=== PATIENT | female | born 1945 | race Caucasian/White ===

== ENCOUNTER 2017-08-20 14:53 | Observation (INO) ==
[2017-08-20] MEDS ORDERED: 0.9 % Sodium Chloride 1,000 ML IVC ONE ×2 (15:00→17:12)
[2017-08-20] MEDS ORDERED: Ondansetron 4 MG/2 ML VIAL IVP ONE (15:00)
--- NOTE | 2017-08-20 15:06 | Emergency Department Note ---
Disposition Clinical Impression: Nausea vomiting and diarrhea, Dehydration, Elevated troponin I level Syncope Qualifiers: Syncope type: unspecified Qualified Code(s): R55 - Syncope and collapse Disposition: Admitted As Inpatient Condition: Fair Time of Disposition: 17:38 Syncope HPI - General Stated Complaint: syncope Time Seen by Provider: 08/20/17 14:58 Source: EMS Mode of arrival: EMS Limitations: no limitations Nursing Notes Reviewed: Yes Vital Signs Reviewed: Yes - History of Present Illness HPI Narrative: Patient is a 72-year-old female who presents to [facility] ED with a chief complaint of syncope today. Patient has had 3 week history of persistent nausea with vomiting as well as diarrhea. States she also has abdominal cramping with this. Patient states today, she was standing up and then felt lightheaded. Her caught her as she passed out. Denies any chest pain, difficulty breathing. No recent fevers or chills. No difficulty with urination. No blood in the stool or vomit. 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) Prodromal Symptoms: lightheaded Witnessed: yes - by bystander Context: standing up Injuries Sustained Associated with Event: none Current Symptoms: nausea, abdominal pain Treatments prior to arrival: IV fluids Associated trauma secondary to event: No - Related Data Home Medications Medication Instructions Recorded Confirmed Albuterol Sulfate [Proair Hfa] 2 puff IH QID PRN 08/20/17 08/20/17 Amlodipine Besylate 2.5 mg PO DAILY 08/20/17 08/20/17 Ammonium Lactate [Lac-Hydrin Five] 1 appl TP BID PRN 08/20/17 08/20/17 Aspirin Enteric Coated [Aspirin EC] 81 mg PO DAILY 08/20/17 08/20/17 Beclomethasone Diprop 80mcg [Qvar 1 puff IH BID 08/20/17 08/20/17 80 mcg] Calcium Carbonate [Calcium] 600 mg PO DAILY 08/20/17 08/20/17 Carbidopa/Levodopa 25/100 [Sinemet 2 each PO TID 08/20/17 08/20/17 25/100] Cranberry 400 mg PO DAILY 08/20/17 08/20/17 HYDROcodone/Acet 5/325 mg [[place] 0.5 - 1 tab PO Q6H PRN 08/20/17 08/20/17 5-325 mg] Loratadine [Claritin] 10 mg PO DAILY 08/20/17 08/20/17 Losartan Potassium [Cozaar] 100 mg PO DAILY 08/20/17 08/20/17 Mometasone Furoate [Nasonex] 17 gm NS DAILY PRN 08/20/17 08/20/17 Montelukast [Singulair] 10 mg PO DAILY 08/20/17 08/20/17 Onabotulinumtoxina [Botox] 100 unit IJ [id number] 08/20/17 08/20/17 Pantoprazole Sodium [Protonix] 20 mg PO DAILY 08/20/17 08/20/17 Polyethylene Glycol 3350 [MiraLAX] 17 gm PO DAILY PRN 08/20/17 08/20/17 Sertraline [Zoloft] 150 mg PO DAILY 08/20/17 08/20/17 Simvastatin [Zocor] 20 mg PO HS 08/20/17 08/20/17 Ubidecarenone [Coenzyme Q-10] 30 mg PO DAILY 08/20/17 08/20/17 clonazePAM [Klonopin] 1 mg PO BID 08/20/17 08/20/17 Allergies Allergy/AdvReac Type Severity Reaction Status Date / Time caffeine Allergy Rash Verified 12/15/16 11:30 codeine Allergy Rash Verified 12/15/16 11:30 iodine Allergy Rash Verified 12/15/16 11:30 Oxycodone Allergy Nausea Verified 12/15/16 11:30 Tetracycline Allergy Vomiting Verified 12/15/16 11:30 All systems ED: reviewed and negative except as stated. Past Medical History - Past Medical History Attestation: Yes The following information was validated with the patient. Source: patient Medical history: Reports: arthritis, GERD, hyperlipidemia, hypertension, TIA - Social History Smoking Status: Never smoker Smokeless Tobacco Status: No Alcohol use: Reports: none Drug use: Reports: none Physical Exam - General Limitations: no limitations General appearance: alert, in no apparent distress - Head Head exam: atraumatic, normocephalic, normal inspection - Eye Eye exam: Present: normal appearance, PERRL, EOMI - ENT ENT exam: normal exam, mucous membranes dry - Neck Neck exam: Present: normal inspection, full ROM, trachea midline - Chest Chest inspection: Present: normal inspection, symmetric chest wall rise - Respiratory Respiratory exam: Present: normal lung sounds bilaterally - Cardiovascular Cardiovascular exam: Present: normal rhythm, tachycardia - Abdominal Exam Abdominal exam: Present: soft, tenderness, normal bowel sounds. Absent: distention, guarding, rebound, rigidity Abdominal tenderness: Present: diffuse, mild - Extremities Exam Extremities exam: Present: normal inspection, full ROM. Absent: tenderness, pedal edema - Back Exam Back exam: Present: normal inspection, full ROM. Absent: tenderness - Neurological Exam Neurological exam: Present: alert, oriented X3 - Psychiatric Psychiatric exam: Present: normal affect, normal mood - Skin Skin exam: Present: warm, dry, intact, normal color Course Course Narrative: Patient seen and examined. Syncopal episode today. Persistent nausea with vomiting and diarrhea. Patient seems quite dehydrated she is tachycardic as well. We will give a liter fluid bolus, Zofran for nausea. We will check basic labs and a CT abdomen and pelvis to assess for any acute abnormalities. - Reevaluation(s) Reevaluation #1: CT scan shows a left sided mass that is adjacent to the left adrenal gland. Possible adrenal gland mass versus lymph node. I discussed results with the patient. She knows that she needs to follow up with this on an outpatient basis. No intra-abdominal finding that seems to address her symptoms. Elevated troponin of 0.04. Likely secondary to demand ischemia. We will give her an aspirin. Second liter fluid was ordered. We will bring her in for further fluids and management of her symptoms. Discussed with hospitalist Dr. Panchal who has accepted patient for admission. Time: 17:37 Vital Signs Temperature 97.9 F 08/20/17 14:57 Pulse Rate 92 08/20/17 14:57 Respiratory Rate 18 08/20/17 14:57 Blood Pressure 133/105 08/20/17 14:57 O2 Sat by Pulse Oximetry 97 08/20/17 14:57 Temperature 97.9 F 08/20/17 14:57 Pulse Rate 92 08/20/17 14:57 Respiratory Rate 18 08/20/17 14:57 Blood Pressure 133/105 08/20/17 14:57 O2 Sat by Pulse Oximetry 97 08/20/17 14:57 Oxygen Delivery Oxygen Delivery Room Air Syncope - Medical Records Medical records reviewed: Yes I reviewed the patient's medical records. - Lab Data Lab results reviewed: Yes I reviewed the patient's lab results. Result diagrams: 08/20/17 15:58 08/20/17 15:58 Lab Results 08/20/17 08/20/17 08/20/17 Range/Units 15:01 15:58 15:58 WBC 11.6 H (4.3-11.1) K/mcL RBC 5.23 H (3.82-4.97) M/mcL Hgb 15.7 H (11.5-15.4) g/dL Hct 46.9 H (35.3-44.9) % MCV 89.7 (83.0-100.0) fL MCH 30.0 (28.0-33.3) pg MCHC 33.5 (31.6-35.5) g/dL RDW 13.1 (11.5-14.5) % Plt Count 361 (140-400) K/mcL MPV 10.4 (9.4-12.4) fL Immature Gran % 0.5 (0-4) % Seg Neutrophils % 78.4 % Lymphocytes % 11.2 % Monocytes % 8.4 % Eosinophils % 0.5 % Basophils % 1.0 % Neutrophils # 9.1 H (1.6-8.9) K/mcL Lymphocytes # 1.3 (0.6-4.6) K/mcL Monocytes # 1.0 (0.0-1.3) K/mcL Eosinophils # 0.1 (0.0-0.6) K/mcL Basophils # 0.1 (0.0-0.2) K/mcL Sodium 141 (136-145) mEq/L Potassium 3.1 L (3.5-5.1) mEq/L Chloride 99 (98-107) mEq/L Carbon Dioxide 28 (23-29) mEq/L BUN 16 (8-23) mg/dL Creatinine 1.14 (0.60-1.20) mg/dL Est GFR ( Amer) 57 L (> 60) Est GFR (Non-Af Amer) 47 L (> 60) BUN/Creatinine Ratio 14 (6-26) Glucose 141 H (70-105) mg/dL POC Glucose 122 H (58-89) Calculated Osmolality 296 (280-300) Lactic Acid (0.5-2.2) mmol/L Calcium 10.3 (8.6-10.3) mg/dL Total Bilirubin 1.0 (0.3-1.0) mg/dL Direct Bilirubin 0.2 (0.0-0.2) mg/dL Indirect Bilirubin 0.8 (0.0-1.2) mg/dL AST 28 (13-39) Units/L ALT 6 L (7-52) Units/L Alkaline Phosphatase 97 (34-104) Units/L Troponin I 0.04 H* (< 0.04) ng/mL Serum Total Protein 7.4 (6.4-8.9) g/dL Albumin 4.4 (3.5-5.7) g/dL Globulin 3.0 (2.4-3.5) g/dL Albumin/Globulin Ratio 1.5 (1.1-2.2) Lipase 9 L (11-82) Units/L 03//18 Range/Units 15:58 WBC (4.3-11.1) K/mcL RBC (3.82-4.97) M/mcL Hgb (11.5-15.4) g/dL Hct (35.3-44.9) % MCV (83.0-100.0) fL MCH (28.0-33.3) pg MCHC (31.6-35.5) g/dL RDW (11.5-14.5) % Plt Count (140-400) K/mcL MPV (9.4-12.4) fL Immature Gran % (0-4) % Seg Neutrophils % % Lymphocytes % % Monocytes % % Eosinophils % % Basophils % % Neutrophils # (1.6-8.9) K/mcL Lymphocytes # (0.6-4.6) K/mcL Monocytes # (0.0-1.3) K/mcL Eosinophils # (0.0-0.6) K/mcL Basophils # (0.0-0.2) K/mcL Sodium (136-145) mEq/L Potassium (3.5-5.1) mEq/L Chloride (98-107) mEq/L Carbon Dioxide (23-29) mEq/L BUN (8-23) mg/dL Creatinine (0.60-1.20) mg/dL Est GFR ( Amer) (> 60) Est GFR (Non-Af Amer) (> 60) BUN/Creatinine Ratio (6-26) Glucose (70-105) mg/dL POC Glucose (58-89) Calculated Osmolality (280-300) Lactic Acid 1.3 (0.5-2.2) mmol/L Calcium (8.6-10.3) mg/dL Total Bilirubin (0.3-1.0) mg/dL Direct Bilirubin (0.0-0.2) mg/dL Indirect Bilirubin (0.0-1.2) mg/dL AST (13-39) Units/L ALT (7-52) Units/L Alkaline Phosphatase (34-104) Units/L Troponin I (< 0.04) ng/mL Serum Total Protein (6.4-8.9) g/dL Albumin (3.5-5.7) g/dL Globulin (2.4-3.5) g/dL Albumin/Globulin Ratio (1.1-2.2) Lipase (11-82) Units/L - Radiology Data Radiology results reviewed: Yes I reviewed the patient's radiology results. Abdomen/Pelvis CT 08/20/17 15:00 IMPRESSION: 1. Indeterminate soft tissue mass adjacent to the left adrenal gland may reflect a lymph node or may reflect an adrenal mass. Additional evaluation with contrast-enhanced MRI abdomen attention adrenal glands may be useful for characterization of enhancement pattern. 2. Mild calcific atherosclerosis aorta without aneurysm. 3. Hepatic steatosis. 4. Cholecystectomy. D/ / Ludwin Rodriguez / Ludwin Rodriguez Interpreting Provider: Ludwin Rodriguez - EKG Data EKG attestation: Yes I reviewed and interpreted this EKG. EKG results narrative: EKG done at 1502 shows normal sinus rhythm with a rate of [address] elevation or depression. Inverted T waves in lead V1. Left axis deviation. Poor R-wave progression. No changes from prior EKG done Jul 28 2014. Attestation Statement - Attestation Attestation: I, Felipe Pa DO, examined this patient [id number] and my medical decision-making was reviewed with Angle Corbett DO Resident Physician. I agree with the documented findings, disposition and treatment plan as described except to the extent set forth below. Please see my progress notes for details. 72-year-old female presents to the emergency room for evaluation of syncopal event. Vital signs are stable presentation. Patient has had syncopal events in the past. She has Parkinson's disease. Over the last 3-4 weeks she has had poorly controlled nausea vomiting and diarrhea. She has not had any other illness. She denies any chest pain shortness of breath headache vision changes fevers or chills. She denies any trauma or injury. She denies any medication changes. Patient has not traveled outside the country she has no other sick contacts. Just prior to coming in, the was with the patient in the bathroom trying to get her shower when she passed out completely. He caught her before she hit the ground. Imaging modalities would be completed secondary to the full syncopal event. Cardiac evaluation with ECG troponin labs including CBC chemistry urinalysis will be completed. CT imaging of the head does not appear to be pertinent at this time considering she did not fall or hit her head and she has had this happen several times in the past. Chest x- ray and CT imaging of the abdomen will be resulted. Definitive management will be established as workup is completed. If need be, we will discuss this with the patient's neurologist up in [place]. Clinically her symptoms appear to be syncope secondary to orthostasis and hypovolemia. Patient will be provided. Hydration and then disposition will be determined. No critical care was applied to the patient's treatment course. See detailed documentation of the physical exam, medical intervention, medical decision-making and disposition in the resident physician's note.. 1745 Patient found have slightly elevated troponin. Hemoglobin appears to be stable. Imaging modalities are unremarkable except for nondescript adrenal cyst. Patient is feeling better at this time still because of the syncopal event the lightheadedness and the persistence of the nausea vomiting and diarrhea causing dehydration patient will be admitted for further hydration medical management and evaluation. Clinical concern for intracranial related pathology at this point concerning symptoms have been present for almost 2-4 weeks. Labs otherwise unremarkable. Disposition will be completed. Troponin appears to be secondary to vascular insufficiency and cardiac straining. Otherwise patient has no EKG changes or other issues at this point. Patient will be admitted for further workup and evaluation.
[2017-08-20 16:19] LABS: Basophils # 0.1 K/mcL (0.0-0.2); Eosinophils # 0.1 K/mcL (0.0-0.6); Eosinophils % 0.5 %; Hematocrit 46.9 % (35.3-44.9); Hemoglobin 15.7 g/dL (11.5-15.4); Immature Granulocytes % 0.5 % (0-4); Lymphocytes # 1.3 K/mcL (0.6-4.6); Lymphocytes % 11.2 %; Mean Corpuscular HGB Conc 33.5 g/dL (31.6-35.5); Mean Corpuscular Volume 89.7 fL (83.0-100.0); Mean Platelet Volume 10.4 fL (9.4-12.4); Monocytes % 8.4 %; Neutrophils # 9.1 K/mcL (1.6-8.9); Platelet Count 361 K/mcL (140-400); Red Blood Count 5.23 M/mcL (3.82-4.97); Red Cell Distribution Width 13.1 % (11.5-14.5); Segmented Neutrophils % 78.4 %
[2017-08-20 16:38] LABS: Albumin 4.4 g/dL (3.5-5.7); Albumin/Globulin Ratio 1.5 (1.1-2.2); Bilirubin,Direct 0.2 mg/dL (0.0-0.2); Bilirubin,Indirect 0.8 mg/dL (0.0-1.2); Calcium 10.3 mg/dL (8.6-10.3); Potassium 3.1 mEq/L (3.5-5.1); Total Protein 7.4 g/dL (6.4-8.9)
[2017-08-20 16:45] LABS: Troponin I 0.04 ng/mL (< 0.04)
[2017-08-20] MEDS ORDERED: Aspirin 81 MG TAB.CHEW PO STA (16:47)
--- NOTE | 2017-08-20 18:07 | Internal Med History&Physical ---
Date of Encounter: 08/20/17 Time of Encounter: 18:03 Assessment and Plan (1) Adrenal mass Current visit: Yes Status: Acute Incidental finding of soft tissue mass adjacent adrenal gland suggestive of possible lymph node versus adrenal mass will obtain MRI as suggested (2) Hypokalemia Current visit: Yes Status: Acute 2 to nausea vomiting and diarrhea we will replace and check magnesium as well (3) GERD (gastroesophageal reflux disease) Current visit: Yes Status: Chronic Chronic resume home medication Qualifiers: Esophagitis presence: without esophagitis Qualified Code(s): K21.9 - Gastro -esophageal reflux disease without esophagitis (4) Dehydration Current visit: Yes Status: Acute (5) Elevated troponin I level Current visit: Yes Status: Acute Mildly elevated troponin with transient troponin check a 2-D echo (6) Nausea vomiting and diarrhea Current visit: Yes Status: Acute Persistent nausea vomiting and diarrhea suggestive of gastroenteritis. This is protracted course about 3 weeks we will consult GI for additional evaluation (7) Syncope Current visit: Yes Status: Acute Patient has has persistent nausea vomiting diarrhea and then today had syncope while standing up preceded by lightheadedness suggestive of vasovagal syncope , very likely orthostatic hypotension versus vasodepressive syncope will continue IV hydration and monitor on telemetry 2-D echo to look at LV function Previous echo done 16 showed normal LV function Qualifiers: Syncope type: unspecified Qualified Code(s): R55 - Syncope and collapse (8) Parkinson disease Current visit: Yes Status: Acute Chronic patient follows up with neurology in [facility] - H&P: HPI Chief complaint: nausea, vomitting and diarrhea Admitted From: Emergency Dept Plans for Post Hospital Care: Home History of present illness: Ms. Collins is a 72 year old female Patient with history of Parkinson, hypertension, TIA, GERD, obesity, and arthritis. Patient presented emergency room following a syncope episode today she got up felt lightheaded and dizzy and passed out but the caught her before she fell to the ground and brought to the emergency room. Patient had had persistent nausea vomiting and diarrhea for about 3 weeks when she goes to have a bowel movement she have abdominal cramping and this persistent diarrhea No blood in the stool no fever or chills and emergency room evaluation show patient is very dehydrated has low potassium of 3.1 CT of the abdomen shows incidental finding of soft tissue mass adjacent to the adrenal gland suggest further evaluation with MRI. Past Med Surg Social Fam HX - Past Medical History Medical history: arthritis, GERD, hyperlipidemia, hypertension, TIA - Social History Smoking Status: Never smoker Smokeless Tobacco Status: No Alcohol use: none Drug use: none Internal Medicine - H&P: Meds Albuterol Sulfate [Proair Hfa] 2 puff IH QID PRN 08/20/17 [History] Amlodipine Besylate 2.5 mg PO DAILY 08/20/17 [History] Ammonium Lactate [Lac-Hydrin Five] 1 appl TP BID PRN 08/20/17 [History] Aspirin Enteric Coated [Aspirin EC] 81 mg PO DAILY 08/20/17 [History] Beclomethasone Diprop 80mcg [Qvar 80 mcg] 1 puff IH BID 08/20/17 [History] Calcium Carbonate [Calcium] 600 mg PO DAILY 08/20/17 [History] Carbidopa/Levodopa 25/100 [Sinemet 25/100] 2 each PO TID 08/20/17 [History] Cranberry 400 mg PO DAILY 08/20/17 [History] HYDROcodone/Acet 5/325 mg [[place] 5-325 mg] 0.5 - 1 tab PO Q6H PRN 08/20/17 [ History] Loratadine [Claritin] 10 mg PO DAILY 08/20/17 [History] Losartan Potassium [Cozaar] 100 mg PO DAILY 08/20/17 [History] Mometasone Furoate [Nasonex] 17 gm NS DAILY PRN 08/20/17 [History] Montelukast [Singulair] 10 mg PO DAILY 08/20/17 [History] Onabotulinumtoxina [Botox] 100 unit IJ [id number] 08/20/17 [History] Pantoprazole Sodium [Protonix] 20 mg PO DAILY 08/20/17 [History] Polyethylene Glycol 3350 [MiraLAX] 17 gm PO DAILY PRN 08/20/17 [History] Sertraline [Zoloft] 150 mg PO DAILY 08/20/17 [History] Simvastatin [Zocor] 20 mg PO HS 08/20/17 [History] Ubidecarenone [Coenzyme Q-10] 30 mg PO DAILY 08/20/17 [History] clonazePAM [Klonopin] 1 mg PO BID 08/20/17 [History] 3 Allergy/AdvReac Type Severity Reaction Status Date / Time caffeine Allergy Rash Verified 12/15/16 11:30 codeine Allergy Rash Verified 12/15/16 11:30 iodine Allergy Rash Verified 12/15/16 11:30 Oxycodone Allergy Nausea Verified 12/15/16 11:30 Tetracycline Allergy Vomiting Verified 12/15/16 11:30 All Systems PM: A 10-system review of systems was performed and is negative for pertinent findings except as documented above in the HPI. - Constitutional Constitutional: other - EENT Eyes: no change in vision, no discharge, no pain, no photophobia Ears: no ear discharge, no ear pain, no tinnitus Nose, mouth and throat: no dysphagia, no nasal discharge, no neck pain, no sore throat - Cardiovascular Cardiovascular ROS IM: syncope - Respiratory Respiratory: no cough, no dyspnea, no wheezing, no excessive phlegm production - Gastrointestinal Gastrointestinal: no abdominal pain, no diarrhea, no hematemesis, no hematochezia, no melena, no nausea, no vomiting - Genitourinary Genitourinary: no change in urinary stream, no dysuria, no flank pain, no hematuria - Musculoskeletal Musculoskeletal ROS IM: no numbness, no tingling - Integumentary Integumentary IM: no rash, no unusual bruising - Constitutional Vitals: Temp Pulse Resp BP Pulse Ox 97.9 F 92 18 133/105 97 08/20/17 14:57 08/20/17 14:57 08/20/17 14:57 08/20/17 14:57 08/20/17 14:57 - Head Head exam: Present: atraumatic, normocephalic - Eye Eye exam: Present: PERRL, conjuntiva pink, sclera anicteric Pupils: Present: PERRL - Neck Neck exam general surgery: Present: supple, trachea midline. Absent: lymphadenopathy - Respiratory Respiratory exam: Present: CTAB. Absent: accessory muscle use, rales, rhonchi, wheezes - Cardiovascular Cardiovascular exam: Present: RRR, +S1, +S2. Absent: diastolic murmur, gallop, rubs, systolic murmur - GI/Abdominal GI/Abdominal exam: Present: normal bowel sounds, soft, no peritoneal signs. Absent: distended, tenderness - Extremities Exam Extremities exam: Present: warm, radial pulses palpable and symmetrical. Absent : calf tenderness, cyanotic, pedal edema - Neurological Exam Neurological exam: Present: CN II-XII intact, oriented X3, no focal deficits. Absent: pronater drift, facial droop, speech deficit - Skin Skin exam: Present: dry, intact Internal Med - H&P Results - Labs CBC & Chem 7: 08/20/17 15:58 08/20/17 15:58
[2017-08-20] MEDS ORDERED: Ondansetron 4 MG/2 ML VIAL IVP PRN (18:16)
[2017-08-20] MEDS ORDERED: Mag Hydrox/Al Hydrox/Simeth 30 ML UDC PO PRN (18:16)
[2017-08-20] MEDS ORDERED: Naloxone 0.4 MG/ML INJ IVP PRN (18:16)
[2017-08-20] MEDS ORDERED: Ammonium Lactate 30 APPL/225 GM BOTTLE TP PRN (18:19)
[2017-08-20] MEDS ORDERED: Fluticasone Propionate Nasal 50 MCG/SPRAY BOTTLE NS PRN (18:19)
[2017-08-20] MEDS ORDERED: Potassium Chloride 40 MEQ, Lidocaine 1% 2 ML in D5% in Water 500 ML IVPB ONE (18:22)
[2017-08-20] MEDS: Carbidopa/Levodopa 25/100 TABLET PO SCH (20:04)
[2017-08-20] MEDS: clonazePAM 1 MG TABLET PO SCH (20:04)
[2017-08-20] MEDS: 0.9 % Sodium Chloride 1,000 ML IVC SCH (20:05)
[2017-08-20 21:11] LABS: Bilirubin,Urine Negative (Negative); Blood,Urine Negative (Negative); Clarity,Urine Cloudy (Clear); Color,Urine Yellow (Yellow); Glucose,Urine (UA) 250 mg/dL (Normal); Ketones,Urine Trace mg/dL (Negative); Leukocyte Esterase,Urine Small (Negative); Nitrite,Urine Negative (Negative); PH,Urine 7.5 pH Units (5.0-8.0); Protein,Urine 30 mg/dL (Neg-Trace); Specific Gravity,Urine 1.017 (1.010-1.025); Urobilinogen,Urine Normal (Normal)
[2017-08-20 21:14] LABS: Bacteria,Urine None Seen per hpf (None-Few); Hyaline Casts,Urine Moderate per lpf (None-Few); RBC,Urine 0-3 per hpf (0-3); Squamous Epithelial Cell,Urine Many per lpf (None-Few); WBC,Urine 15-30 per hpf (0-3)
[2017-08-20] MEDS: Beclomethasone 80mcg MDI IH SCH (21:36)
[2017-08-21 05:25] LABS: Alanine Aminotransferase 3 Units/L (7-52); Albumin/Globulin Ratio 1.5 (1.1-2.2); Alkaline Phosphatase 80 Units/L (34-104); Aspartate Amino Transferase 22 Units/L (13-39); BUN/Creatinine Ratio 14 (6-26); Bilirubin,Total 0.9 mg/dL (0.3-1.0); Blood Urea Nitrogen 13 mg/dL (8-23); Calcium 9.6 mg/dL (8.6-10.3); Carbon Dioxide 29 mEq/L (23-29); Chloride 104 mEq/L (98-107); Chol/HDL Ratio 3.8 (0-4.9); Cholesterol 191 mg/dL (< 200); Globulin 2.6 g/dL (2.4-3.5); Glucose 140 mg/dL (70-105); HDL Cholesterol 50 mg/dL (40-59); LDL Cholesterol,Calculated 108 mg/dL (0-99); Magnesium 1.7 mg/dL (1.6-2.6); Osmolality,Calculated 294 (280-300); Potassium 3.2 mEq/L (3.5-5.1); Sodium 141 mEq/L (136-145); Total Protein 6.6 g/dL (6.4-8.9); Triglycerides 163 mg/dL (< 150); eGFR For African Americans > 60 (> 60); eGFR For Non-African Americans 59 (> 60)
--- NOTE | 2017-08-21 07:25 | Electrocardiograph Report ---
[address] [place] [address] Test Date: 2017-08-20 Pat Name: Ella Collins Department: 102 Room: 2N10 Gender: F [employer] Compounder: : 1945 Requested By: Angle Corbett Order Number: [id number] Reading MD: Hugo Bach MD Measurements Intervals [place] Rate: 71 P: 25 GA: 177 QRS: -27 QRSD: 80 T: 36 QT: 369 QTc: 392 Interpretive Statements SINUS RHYTHM LEFT ATRIAL ENLARGEMENT BORDERLINE LEFT AXIS DEVIATION LEFT VENTRICULAR HYPERTROPHY Electronically Signed On 08-21-2017 7:23:53 EDT by Hugo Bach MD
[2017-08-21] MEDS: Carbidopa/Levodopa 25/100 TABLET PO SCH ×3 (07:33→20:22)
[2017-08-21] MEDS: Aspirin Enteric Coated 81 MG Tablet PO SCH (07:34)
[2017-08-21] MEDS ORDERED: Potassium Chloride Elixir 20 MEQ/15 ML UDC PO ONE (07:34)
[2017-08-21] MEDS: clonazePAM 1 MG TABLET PO SCH ×2 (07:34→20:22)
[2017-08-21] MEDS: Loratadine 10 MG TABLET PO SCH (07:34)
[2017-08-21] MEDS: Beclomethasone 80mcg MDI IH SCH ×2 (08:01→22:32)
--- NOTE | 2017-08-21 08:46 | Internal Med Progress Note ---
<Nilton Guallpa - Last Filed: 08/21/17 09:10> Date of Encounter: 08/21/17 Time of Encounter: 08:46 - Assessment and plan (1) Adrenal incidentaloma Current Visit: Yes Status: Acute Assessment and plan: 42 mm x 23 mm mass found adjacent to left adrenal gland. Random cortisol 13.1. Patient's blood pressure is within normal limits. Denies palpitations, diaphoresis, headache BP 140s systolic. Presented with hypokalemia: K+ 3.1 plasma aldosterone levels, renin activity MRI pending. (2) Syncope Current Visit: Yes Status: Acute Assessment and plan: Patient had episode of syncope which brought her to the emergency department. This occurred while standing up Reports not eating anything for the past 3 days. Likely secondary to dehydration, vasovagal episode On presentation blood pressure was 133/105 with a heart rate of 92. Echocardiogram pending Qualifiers: Syncope type: unspecified Qualified Code(s): R55 - Syncope and collapse (3) Nausea vomiting and diarrhea Current Visit: Yes Status: Acute Assessment and plan: GI stool panel pending Respiratory infection panel pending Continue IV fluids. Continue ondansetron. (4) Elevated troponin I level Current Visit: Yes Status: Acute Assessment and plan: Patient had elevated troponin of 0.04, 0.04, 0.03 respectively. EKG shows sinus rhythm with a rate of [address] T wave changes. Chest x-ray within normal limits. She denies chest pain. Denies hx of cardiovascular disease hx of HTN and HLD previous echo EF of 65% with mild concentric hypertrophy of the left ventricle, mild dilated right ventricle and mild mitral regurgitation. Echocardiogram pending. Continue aspirin and statin (5) Hypokalemia Current Visit: Yes Status: Acute Assessment and plan: 2nd N/V replacing 40meq PO (6) GERD (gastroesophageal reflux disease) Current Visit: Yes Status: Chronic Assessment and plan: continue omeprazole Qualifiers: Esophagitis presence: without esophagitis Qualified Code(s): K21.9 - Gastro -esophageal reflux disease without esophagitis (7) Parkinson disease Current Visit: Yes Status: Acute Assessment and plan: continue Sinemet. - Subjective Interval history: Patient reports she still having a lot of nausea and dry heaving. She had a bout of vomiting and diarrhea yesterday. Reports her symptoms started 3 weeks ago as mild nausea and became progressively worse to the point for the past 3 days patient has not been able to eat or drink. Patient presented after passing out and was caught by her . She denies sick contacts, eating contaminated food, travel. Denies being started on a new medication. Denies hematemesis and hematochezia, melena. Reported having abdominal cramping yesterday over the lower abdomen which has not resolved. Denies having fevers. 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 Denies having animals at home. - Constitutional Vitals: Temp Pulse Resp BP Pulse Ox 98.5 F 96 17 147/81 92 08/21/17 07:35 08/21/17 07:35 08/21/17 08:02 08/21/17 07:35 08/21/17 08:02 - Other Additional findings: General: Pleasant without distress HEENT: Head atraumatic, normocephalic, EOMI, PERRL, neck nontender to palpation , absent lymphadenopathy, dry mucous membranes Heart: Sinus tachycardia Lungs: Clear to auscultation bilaterally Abdomen: Soft nontender, nondistended positive bowel sounds Skin: warm and dry Extremities: Absent pedal edema, right upper extremity resting tremor Neuro: Alert and oriented 3 Vascular: Pedal and radial pulses 2 out of 4 Internal Medicine: Result - Labs CBC & Chem 7: 08/20/17 15:58 08/21/17 03:49 Labs: BMP 08/21/17 03:49 Sodium 141 Potassium 3.2 L Chloride 104 Carbon Dioxide 29 BUN 13 Creatinine 0.93 Glucose 140 H Calcium 9.6 Cardiac Enzymes 08/20/17 08/21/17 Range/Units 21:51 03:49 Troponin I 0.04 H* 0.03 (< 0.04) ng/mL Liver Function 08/21/17 Range/Units 03:49 Total Bilirubin 0.9 (0.3-1.0) mg/dL AST 22 (13-39) Units/L ALT 3 L (7-52) Units/L Alkaline Phosphatase 80 (34-104) Units/L Albumin 4.0 (3.5-5.7) g/dL Urine 08/20/17 Range/Units 20:00 Urine Color Yellow (Yellow) Urine Clarity Cloudy A (Clear) Urine pH 7.5 (5.0-8.0) pH Units Ur Specific [place] 1.017 (1.010-1.025) Urine Protein 30 H (Neg-Trace) mg/dL Urine Glucose (UA) 250 H (Normal) mg/dL Consult Discharge Plan - Plan Referrals: JEMAL GRANADO [Other] - 08/29/17 3:00 pm (THIS IS A NEW OFFICE FOR DR. GRANADO HE IS NOW LOCATED BESIDE OF [facility]) <Tim Guillen H - Last Filed: 08/21/17 11:19> Date of Encounter: 08/21/17 - Constitutional Vitals: Temp Pulse Resp BP Pulse Ox 98.5 F 96 17 147/81 92 08/21/17 07:35 08/21/17 07:35 08/21/17 08:02 08/21/17 07:35 08/21/17 08:02 Internal Medicine: Result - Labs CBC & Chem 7: 08/20/17 15:58 08/21/17 03:49 Labs: BMP 08/21/17 03:49 Sodium 141 Potassium 3.2 L Chloride 104 Carbon Dioxide 29 BUN 13 Creatinine 0.93 Glucose 140 H Calcium 9.6 Cardiac Enzymes 08/20/17 08/21/17 08/21/17 Range/Units 21:51 03:49 09:25 Troponin I 0.04 H* 0.03 < 0.03 (< 0.04) ng/mL Liver Function 08/21/17 Range/Units 03:49 Total Bilirubin 0.9 (0.3-1.0) mg/dL AST 22 (13-39) Units/L ALT 3 L (7-52) Units/L Alkaline Phosphatase 80 (34-104) Units/L Albumin 4.0 (3.5-5.7) g/dL Urine 08/20/17 Range/Units 20:00 Urine Color Yellow (Yellow) Urine Clarity Cloudy A (Clear) Urine pH 7.5 (5.0-8.0) pH Units Ur Specific [place] 1.017 (1.010-1.025) Urine Protein 30 H (Neg-Trace) mg/dL Urine Glucose (UA) 250 H (Normal) mg/dL - Impressions Impressions Echocardiogram 08/20/17 18:21 Impressions: Blood pressure 200/102 mmHg during time of study. LVEF 65%. Moderate concentric left ventricular hypertrophy with severe basal septal hypertrophy. No LV outflow obstruction. Mild left ventricular diastolic dysfunction. Normal right ventricular structure and function. Mild pulmonic regurgitation. No pulmonary hypertension by TR gradient, 29 mmHg. No evidence of PFO with agitated saline contrast. Left Ventricular Wall Motion: Rest Echo Findings All wall segments showed normal motion. Findings: Study Quality * Technically adequate exam. ECG Findings * Normal sinus rhythm. Left Ventricle * LVEF 65%. * Moderate concentric left ventricular hypertrophy with severe basal septal hypertrophy. * Mild left ventricular diastolic dysfunction. Right Ventricle * Normal right ventricular structure and function. Left Atrium * Mildly dilated left atrium. Right Atrium * Normal right atrial size. Aortic Valve * Trace aortic regurgitation. * Trileaflet aortic valve. * No aortic stenosis. Mitral Valve * No mitral regurgitation. * Normal mitral valve structure. * No mitral stenosis. Tricuspid Valve * Tricuspid valve not well visualized. * Trace tricuspid regurgitation. Pulmonic Valve * Pulmonic valve is not well visualized. * No pulmonic stenosis. * Mild pulmonic regurgitation. Pulmonary Artery * Pulmonary artery not well visualized. Aorta * Normally sized aortic root. Pericardium * There is no pericardial effusion present. Interatrial Septum * No evidence of PFO by color Doppler. * No evidence of PFO with agitated saline contrast. IVC * The IVC is not well evaluated. - Attending Attestation Syncopal episode, unclear etiology, consider possible dehydration Intra-abdominal mass, consider possible carcinoid in the setting of acute diarrhea Check 5HIAA in urine of 24 hours GI consulted Send a GI panel I examined this patient and my medical decision-making was reviewed with the Resident Physician. I agree with the documented findings, disposition and treatment plan as described except to the extent set forth below.
[2017-08-21] MEDS ORDERED: UBIDECARENONE 30 MG PO SCH (09:00)
[2017-08-21] MEDS ORDERED: CRANBERRY 400 MG PO SCH (09:00)
[2017-08-21] MEDS ORDERED: *HR* Promethazine 25 MG/ML VIAL IVP PRN (09:15)
[2017-08-21] MEDS: 0.9 % Sodium Chloride 1,000 ML IVC SCH (09:40)
[2017-08-21 10:39] LABS: Estimated Average Glucose 143 mg/dl; Hemoglobin A1C 6.6 %
[2017-08-21] MEDS: *HR* HYDROcodone/Acet 5/325 mg TABLET PO PRN (11:54)
--- NOTE | 2017-08-21 12:22 | Gastroenterology Consult Note ---
<Shane Xiong - Last Filed: 08/21/17 17:02> Date of Encounter: 08/21/17 Time of Encounter: 14:00 - Time Spent With Patient Total time spent is greater than 50% in coordination of care (as documented) at patient's floor/unit and/or counseling patient: GI History of Present Illness - Data of Consult Requesting Physician: Tim Guillen - Consult Narrative History of present illness: Ms. Collins is a 72 year old female - Constitutional Vitals: Temp Pulse Resp BP Pulse Ox 97.5 F L 84 17 147/81 99 08/21/17 12:00 08/21/17 12:00 08/21/17 12:00 08/21/17 12:00 08/21/17 12:00 Results - Labs CBC & Chem 7: 08/20/17 15:58 08/21/17 03:49 Labs: Last Result Calcium 9.6 mg/dL (8.6-10.3) 08/21/17 03:49 Troponin I < 0.03 ng/mL (< 0.04) 08/21/17 09:25 Triglycerides 163 mg/dL (< 150) H 08/21/17 03:49 Entire Visit Hgb 15.7 g/dL (11.5-15.4) H 08/20/17 15:58 Hct 46.9 % (35.3-44.9) H 08/20/17 15:58 Total Bilirubin 0.9 mg/dL (0.3-1.0) 08/21/17 03:49 AST 22 Units/L (13-39) 08/21/17 03:49 ALT 3 Units/L (7-52) L 08/21/17 03:49 Lipase 9 Units/L (11-82) L 08/20/17 15:58 - Impressions Impressions Echocardiogram 08/20/17 18:21 Impressions: Blood pressure 200/102 mmHg during time of study. LVEF 65%. Moderate concentric left ventricular hypertrophy with severe basal septal hypertrophy. No LV outflow obstruction. Mild left ventricular diastolic dysfunction. Normal right ventricular structure and function. Mild pulmonic regurgitation. No pulmonary hypertension by TR gradient, 29 mmHg. No evidence of PFO with agitated saline contrast. Left Ventricular Wall Motion: Rest Echo Findings All wall segments showed normal motion. Findings: Study Quality * Technically adequate exam. ECG Findings * Normal sinus rhythm. Left Ventricle * LVEF 65%. * Moderate concentric left ventricular hypertrophy with severe basal septal hypertrophy. * Mild left ventricular diastolic dysfunction. Right Ventricle * Normal right ventricular structure and function. Left Atrium * Mildly dilated left atrium. Right Atrium * Normal right atrial size. Aortic Valve * Trace aortic regurgitation. * Trileaflet aortic valve. * No aortic stenosis. Mitral Valve * No mitral regurgitation. * Normal mitral valve structure. * No mitral stenosis. Tricuspid Valve * Tricuspid valve not well visualized. * Trace tricuspid regurgitation. Pulmonic Valve * Pulmonic valve is not well visualized. * No pulmonic stenosis. * Mild pulmonic regurgitation. Pulmonary Artery * Pulmonary artery not well visualized. Aorta * Normally sized aortic root. Pericardium * There is no pericardial effusion present. Interatrial Septum * No evidence of PFO by color Doppler. * No evidence of PFO with agitated saline contrast. IVC * The IVC is not well evaluated. Abdomen MRI 08/21/17 10:16 IMPRESSION: 1. 3.9 cm x 2.1 cm x 4.4 cm lesion in the left suprarenal fossa appears to arise from the anteromedial left adrenal gland and has features suggestive of pheochromocytoma. Recommend biochemical correlation with consideration for surgical consultation. 2. Severe hepatic steatosis and mild hepatomegaly. D/ / Alok Alonso MD / Alok Alonso MD Interpreting Provider: Alok Alonso MD Consult Discharge Plan - Plan Referrals: JEMAL GRANADO [Other] - 08/29/17 3:00 pm (THIS IS A NEW OFFICE FOR DR. GRANADO HE IS NOW LOCATED [facility]ESIDE [facility]) - Attending Attestation I have personally performed a face to face evaluation on this patient. I have reviewed and agree with the care plan. History and Exam by me shows: Patient seen complaining of nausea vomiting and diarrhea for 3 weeks or so. Currently she is being workup for a possible pheochromocytoma. We will wait for stool studies including stool panel and C. difficile and also w/u for pheochromocytoma if unremarkable then will consider EGD colonoscopy <Graciela Mon - Last Filed: 08/21/17 17:12> Date of Encounter: 08/21/17 Time of Encounter: 10:50 - Assessment and plan (1) Nausea vomiting and diarrhea Current Visit: Yes Status: Acute Assessment and plan: 72 year old female who presents with syncope. She admits to 3 week history of nausea, vomiting, diarrhea and weight loss. CT abdomen showed possible adrenal mass. Mri shows possible pheochromocytoma which may explain some of her symptoms. Will order stool workup. Will hold off on EGD/colonoscopy at this time - Time Spent With Patient Total time spent is greater than 50% in coordination of care (as documented) at patient's floor/unit and/or counseling patient: GI History of Present Illness - Data of Consult Patient: new to practice Consult date: 08/21/17 Requesting Physician: Tim Guillen - Consult Narrative Reason for consult: nausea/vomiting/diarrhea History of present illness: Ms. Collins is a 72 year old female Patient with history of Parkinson, hypertension, TIA, GERD, obesity, and arthritis. She presented to the emergency room following a syncope episode today. She states she got up felt lightheaded and dizzy and passed out but her caught her before she fell to the ground and brought to the emergency room. Patient also reports persistent nausea vomiting and diarrhea for about 3 weeks. She states diarrhea is yellow, denies bloody or tarry stools. She states 1-2 BMs a day. She has abdominal cramping. She states nausea and vomiting is not related to any specific foods. She denies hematemesis. She states she has history of GERD which has been much worse the past month. Her states she has lost 30 pounds in the past 2-3 weeks. She denies fever or chills but states she has facial flushing and "feels very hot every evening". She appeared very dehydrated in the ED with a potassium of 3.1. CT of the abdomen shows incidental finding of soft tissue mass adjacent to the adrenal gland.Hgb 15.7, K 3.2, LFTs normal, lipase normal, troponin 0.04 Colonoscopy: < 10 years ago, Dr Singh EGD: 05/26 erosive gastritis and hyperplastic polyps NSAIDS/ASA: asa 81 mg Anticoagulants: Past Med Surg Social Fam HX - Past Medical History Medical history: arthritis, GERD, hyperlipidemia, hypertension, TIA - Social History Smoking Status: Never smoker Smokeless Tobacco Status: No Alcohol use: none Drug use: none Review of Systems: GI: as per [place] GENERAL: denies fever or chills EYES: denies yellow discoloration ENT: denies pain with swallowing or difficulty swallowing CARDIO: denies chest pain, palpitations RESP: Shortness of breath with exertion : denies change in color of urine NEURO: increased weakness and fatigue HEME: Denies any bruising MS: chronic back and joint pain. DERM: denies rash or itching PSYCH: history of anxiety and depression - Constitutional Vitals: Temp Pulse Resp BP Pulse Ox 97.5 F L 84 17 147/81 99 08/21/17 11:55 08/21/17 11:55 08/21/17 11:55 08/21/17 07:35 08/21/17 11:55 Exam: CONSTITUTIONAL:~alert, no acute distress.~HEAD:~normocephalic, head bobbing noted.~EYES:~no jaundice.~NECK:~no obvious swelling.~HEART:~regular rate and rhythm, tachycardic, no murmurs.~LUNGS:~bilateral good air entry.~ABDOMEN:~non distended, soft, tender to bilateral lower quadrants, ~RECTAL EXAM:~Deferred.~ EXTREMITIES:~no clubbing, cyanosis or edema, skaking noted to bilateral hands.~ SKIN:~no stigmata of chronic liver disease.~NEUROLOGIC:~ alert and oriented parkinsonian tremor noted Results - Labs CBC & Chem 7: 08/20/17 15:58 08/21/17 03:49 Labs: Last Result Calcium 9.6 mg/dL (8.6-10.3) 08/21/17 03:49 Troponin I < 0.03 ng/mL (< 0.04) 08/21/17 09:25 Triglycerides 163 mg/dL (< 150) H 08/21/17 03:49 Entire Visit Hgb 15.7 g/dL (11.5-15.4) H 08/20/17 15:58 Hct 46.9 % (35.3-44.9) H 08/20/17 15:58 Total Bilirubin 0.9 mg/dL (0.3-1.0) 08/21/17 03:49 AST 22 Units/L (13-39) 03/13/18 03:49 ALT 3 Units/L (7-52) L 08/21/17 03:49 Lipase 9 Units/L (11-82) L 08/20/17 15:58 - Impressions Impressions Echocardiogram 08/20/17 18:21 Impressions: Blood pressure 200/102 mmHg during time of study. LVEF 65%. Moderate concentric left ventricular hypertrophy with severe basal septal hypertrophy. No LV outflow obstruction. Mild left ventricular diastolic dysfunction. Normal right ventricular structure and function. Mild pulmonic regurgitation. No pulmonary hypertension by TR gradient, 29 mmHg. No evidence of PFO with agitated saline contrast. Left Ventricular Wall Motion: Rest Echo Findings All wall segments showed normal motion. Findings: Study Quality * Technically adequate exam. ECG Findings * Normal sinus rhythm. Left Ventricle * LVEF 65%. * Moderate concentric left ventricular hypertrophy with severe basal septal hypertrophy. * Mild left ventricular diastolic dysfunction. Right Ventricle * Normal right ventricular structure and function. Left Atrium * Mildly dilated left atrium. Right Atrium * Normal right atrial size. Aortic Valve * Trace aortic regurgitation. * Trileaflet aortic valve. * No aortic stenosis. Mitral Valve * No mitral regurgitation. * Normal mitral valve structure. * No mitral stenosis. Tricuspid Valve * Tricuspid valve not well visualized. * Trace tricuspid regurgitation. Pulmonic Valve * Pulmonic valve is not well visualized. * No pulmonic stenosis. * Mild pulmonic regurgitation. Pulmonary Artery * Pulmonary artery not well visualized. Aorta * Normally sized aortic root. Pericardium * There is no pericardial effusion present. Interatrial Septum * No evidence of PFO by color Doppler. * No evidence of PFO with agitated saline contrast. IVC * The IVC is not well evaluated. Abdomen MRI 08/21/17 10:16
[2017-08-21] MEDS ORDERED: Polyethylene Glycol 3350 255 GM POWDER PO ONE (16:00)
[2017-08-21 16:09] LABS: C.difficile Toxin A/B by PCR Not detected (Not detect); Campylobacter by PCR Not detected (Not detect); Enteroaggregative E.coli(EAEC) Not detected (Not detect); Enteropathogenic E.coli(EPEC) Not detected (Not detect); Enterotoxigenic E.coli (ETEC) Not detected (Not detect); Plesiomonas shigelloides PCR Not detected (Not detect); Salmonella PCR Not detected (Not detect); Shigalike tox-prod E coli STEC Not detected (Not detect); Vibrio PCR Not detected (Not detect); Vibrio cholerae PCR Not detected (Not detect); Yersinia enterocolitica PCR Not detected (Not detect)
[2017-08-21 16:10] LABS: Adenovirus F 40/41 PCR Not detected (Not detect); Astrovirus PCR Not detected (Not detect); Cryptosporidium by PCR Not detected (Not detect); Cyclospora cayetanensis PCR Not detected (Not detect); Entamoeba histolytica PCR Not detected (Not detect); Giardia lamblia PCR Not detected (Not detect); Norovirus GI/GII PCR Not detected (Not detect); Rotavirus A PCR Not detected (Not detect); Sapovirus PCR Not detected (Not detect); Shig/EnteroinvasiveE coli EIEC Not detected (Not detect)
[2017-08-22] MEDS: *HR* HYDROcodone/Acet 5/325 mg TABLET PO PRN ×2 (03:21→09:42)
[2017-08-22 05:18] LABS: BUN/Creatinine Ratio 9 (6-26); Blood Urea Nitrogen 9 mg/dL (8-23); Calcium 10.1 mg/dL (8.6-10.3); Carbon Dioxide 24 mEq/L (23-29); Chloride 104 mEq/L (98-107); Glucose 152 mg/dL (70-105); Osmolality,Calculated 294 (280-300); Potassium 3.2 mEq/L (3.5-5.1); Sodium 141 mEq/L (136-145); eGFR For African Americans > 60 (> 60); eGFR For Non-African Americans 58 (> 60)
[2017-08-22] MEDS: clonazePAM 1 MG TABLET PO SCH (08:09)
[2017-08-22] MEDS: Aspirin Enteric Coated 81 MG Tablet PO SCH (08:09)
[2017-08-22] MEDS: Loratadine 10 MG TABLET PO SCH (08:09)
[2017-08-22] MEDS: Carbidopa/Levodopa 25/100 TABLET PO SCH (08:09)
[2017-08-22] MEDS: Beclomethasone 80mcg MDI IH SCH (08:21)
--- NOTE | 2017-08-22 08:58 | Internal Med Progress Note ---
<Nilton Guallpa - Last Filed: 08/22/17 08:56> Date of Encounter: 08/22/17 Time of Encounter: 08:56 - Assessment and plan (1) Adrenal incidentaloma Current Visit: Yes Status: Acute Assessment and plan: 42 mm x 23 mm mass found adjacent to left adrenal gland. MRI reports possibility of mass being pheochromocytoma collecting urine metanephrines and 5-IHAA PRN hydralazine for BP spikes (2) Syncope Current Visit: Yes Status: Acute Assessment and plan: Patient had episode of syncope which brought her to the emergency department. 2nd to dehydration and vasovagal epidsode orthostatic vitals shows 50mmhg drop in systolic pressure. Echocardiogram shows EF of 65% with moderate concentric left ventricular hypertrophy and severe basal septal hypertrophy with mild left ventricular diastolic dysfunction. No LV outflow obstruction or valve abnormalaties. patient has been given total 4L IVF will discontinue. Qualifiers: Syncope type: unspecified Qualified Code(s): R55 - Syncope and collapse (3) Nausea vomiting and diarrhea Current Visit: Yes Status: Acute Assessment and plan: N/V resolved reports having loose stools tolerating full liquid diet GI stool panel negative d/c IVF. Continue ondansetron prn (4) GERD (gastroesophageal reflux disease) Current Visit: Yes Status: Chronic Assessment and plan: controlled. continue home medication Qualifiers: Esophagitis presence: without esophagitis Qualified Code(s): K21.9 - Gastro -esophageal reflux disease without esophagitis (5) Hypokalemia Current Visit: Yes Status: Acute Assessment and plan: still hypokalemic after replacement. will start daily potassium supplement. (6) Parkinson disease Current Visit: Yes Status: Acute Assessment and plan: right UE tremor stable continue sinemet - Subjective Interval history: Patient reports improved nausea. Denies any additional episodes of emesis. She is tolerating a full full liquid diet. Currently were collecting 24-hour urine samples for metanephrines and 5-IHAA however some of the urine was flushed overnight. Therefore this process will start again this morning. She reports having a headache as well. She denies chest pain shortness of breath, abdominal pain, flushing. - Constitutional Vitals: Temp Pulse Resp BP Pulse Ox 98.2 F 65 16 165/124 90 08/22/17 07:33 08/22/17 07:33 08/22/17 07:33 08/22/17 07:33 08/22/17 07:33 - Other Additional findings: General: Pleasant without distress HEENT: Moist mucous memory Heart: Regular rate and rhythm with no murmur Lungs: Clear to auscultation bilaterally Abdomen: Soft nontender, nondistended positive bowel sounds Skin: warm and dry Extremities: Absent pedal edema, Neuro: Alert oriented 3 Vascular: Pedal and radial pulses 2 out of 4 Internal Medicine: Result - Labs CBC & Chem 7: 08/20/17 15:58 08/22/17 03:13 Labs: BMP 08/22/17 03:13 Sodium 141 Potassium 3.2 L Chloride 104 Carbon Dioxide 24 BUN 9 Creatinine 0.95 Glucose 152 H Calcium 10.1 Cardiac Enzymes 08/21/17 Range/Units 09:25 Troponin I < 0.03 (< 0.04) ng/mL - Impressions Impressions Echocardiogram 08/20/17 18:21 Impressions: Blood pressure 200/102 mmHg during time of study. LVEF 65%. Moderate concentric left ventricular hypertrophy with severe basal septal hypertrophy. No LV outflow obstruction. Mild left ventricular diastolic dysfunction. Normal right ventricular structure and function. Mild pulmonic regurgitation. No pulmonary hypertension by TR gradient, 29 mmHg. No evidence of PFO with agitated saline contrast. Left Ventricular Wall Motion: Rest Echo Findings All wall segments showed normal motion. Findings: Study Quality * Technically adequate exam. ECG Findings * Normal sinus rhythm. Left Ventricle * LVEF 65%. * Moderate concentric left ventricular hypertrophy with severe basal septal hypertrophy. * Mild left ventricular diastolic dysfunction. Right Ventricle * Normal right ventricular structure and function. Left Atrium * Mildly dilated left atrium. Right Atrium * Normal right atrial size. Aortic Valve * Trace aortic regurgitation. * Trileaflet aortic valve. * No aortic stenosis. Mitral Valve * No mitral regurgitation. * Normal mitral valve structure. * No mitral stenosis. Tricuspid Valve * Tricuspid valve not well visualized. * Trace tricuspid regurgitation. Pulmonic Valve * Pulmonic valve is not well visualized. * No pulmonic stenosis. * Mild pulmonic regurgitation. Pulmonary Artery * Pulmonary artery not well visualized. Aorta * Normally sized aortic root. Pericardium * There is no pericardial effusion present. Interatrial Septum * No evidence of PFO by color Doppler. * No evidence of PFO with agitated saline contrast. IVC * The IVC is not well evaluated. Abdomen MRI 08/21/17 10:16 IMPRESSION: 1. 3.9 cm x 2.1 cm x 4.4 cm lesion in the left suprarenal fossa appears to arise from the anteromedial left adrenal gland and has features suggestive of pheochromocytoma. Recommend biochemical correlation with consideration for surgical consultation. 2. Severe hepatic steatosis and mild hepatomegaly. D/ / Alok Alonso MD / Alok Alonso MD Interpreting Provider: Alok Alonso MD Consult Discharge Plan - Plan Referrals: JEMAL GRANADO [Other] - 08/29/17 3:00 pm (THIS IS A NEW OFFICE FOR DR. GRANADO HE IS NOW LOCATED [facility]IDE [facility]) <Tim Guillen - Last Filed: 08/22/17 09:42> Date of Encounter: 08/22/17 - Assessment and plan (1) Adrenal incidentaloma Current Visit: Yes Status: Acute (2) Syncope Current Visit: Yes Status: Acute Qualifiers: Syncope type: unspecified Qualified Code(s): R55 - Syncope and collapse (3) Nausea vomiting and diarrhea Current Visit: Yes Status: Acute (4) GERD (gastroesophageal reflux disease) Current Visit: Yes Status: Chronic Qualifiers: Esophagitis presence: without esophagitis Qualified Code(s): K21.9 - Gastro -esophageal reflux disease without esophagitis (5) Hypokalemia Current Visit: Yes Status: Acute (6) Parkinson disease Current Visit: Yes Status: Acute - Constitutional Vitals: Temp Pulse Resp BP Pulse Ox 98.2 F 64 16 165/124 95 08/22/17 07:33 08/22/17 08:53 08/22/17 07:33 08/22/17 07:33 08/22/17 08:53 Internal Medicine: Result - Labs CBC & Chem 7: 08/20/17 15:58 08/22/17 03:13 Labs: BMP 08/22/17 03:13 Sodium 141 Potassium 3.2 L Chloride 104 Carbon Dioxide 24 BUN 9 Creatinine 0.95 Glucose 152 H Calcium 10.1 Cardiac Enzymes 08/21/17 Range/Units 09:25 Troponin I < 0.03 (< 0.04) ng/mL - Impressions Impressions Abdomen MRI 08/21/17 10:16 IMPRESSION: 1. 3.9 cm x 2.1 cm x 4.4 cm lesion in the left suprarenal fossa appears to arise from the anteromedial left adrenal gland and has features suggestive of pheochromocytoma. Recommend biochemical correlation with consideration for surgical consultation. 2. Severe hepatic steatosis and mild hepatomegaly. D/ / Alok Alonso MD / Alok Alonso MD Interpreting Provider: Alok Alonso MD - Attending Attestation the patient prefers to be transferred to [place] or [place] considering there is a possibility of a pheochromocytoma 24 h urine is being collected I examined this patient and my medical decision-making was reviewed with the Resident Physician. I agree with the documented findings, disposition and treatment plan as described except to the extent set forth below.
--- NOTE | 2017-08-22 10:06 | Discharge Summary ---
<Nilton Guallpa - Last Filed: 08/22/17 09:54> Orders not resulted at time of discharge: Pending orders 08/21/17 08:27 Respiratory Infection Panel [MOLMIC] Routine 08/21/17 09:25 Aldosterone, Blood Routine Renin, Activity Routine 08/21/17 12:18 Calprotectin, Fecal Routine Ova & Parasite Exam Routine Pancreatic Elastase, Fecal Routine 08/21/17 13:26 Metanephrine,Ur Random or 24hr Routine 08/21/17 21:29 5-HIAA,Ur [place] or 24hr Routine Date of Encounter: 08/22/17 Time of Encounter: 09:54 - Discharge Diagnosis (1) Adrenal incidentaloma Priority: Primary Status: Acute (2) Syncope Priority: Secondary Status: Acute Qualifiers: Syncope type: unspecified Qualified Code(s): R55 - Syncope and collapse (3) Nausea vomiting and diarrhea Priority: Secondary Status: Acute (4) GERD (gastroesophageal reflux disease) Priority: Secondary Status: Chronic Qualifiers: Esophagitis presence: without esophagitis Qualified Code(s): K21.9 - Gastro -esophageal reflux disease without esophagitis (5) Hypokalemia Priority: Secondary Status: Acute (6) Parkinson disease Priority: Secondary Status: Acute Hospital course: Ms. Collins is a 72 year old female presented with chief complaint of syncope. Patient was getting up from a chair when she suddenly passed out and was caught by her before falling onto the floor. Patient reports having nausea vomiting diarrhea for the past 3 weeks days with the inability to eat or drink for the past 3 days. She denied sick contacts, eating contaminated food, travel , starting new medication, hematemesis, hematochezia, melena, chest pain, sob. She reported having cramping abdominal pain over the lower part of the abdomen before admission. She reports episodes of flushing, feeling hot, and loss of 30 pounds in the past 2-3 weeks. Furthermore on presentation patient had mild hypokalemia of 3.1. Upon admission patient had a CT of the abdomen/pelvis which showed a 42 mm x 23mm mass found adjacent to the left adrenal gland. Patient was 3 minutes with MRI of the abdomen which showed a 3.9 cm x 2.1 cm x 4.4 cm lesion in the left suprarenal fossa suggestive of pheochromocytoma. Furthermore MRI of the abdomen also showed severe hepatic status post ptosis and mild hepatomegaly. Since admission patient's had multiple spikes in blood pressure which reached systolic 200s and then resolve on their own to systolic 140s. We have ordered aldosterone levels, renin activity. Morning cortisol was wnl. We also started to collect 24-hour urine metanephrines and 5-IHAA however patient continues to have multiple spikes in blood pressure and, flushing symptoms. Because our facility does not have a inpatient inventory worker, or capacity to surgically remove a pheochromocytoma (facility does not have phenoxybenzamine), if this is what she is diagnosed with, we have decided to transfer the patient to [facility] for further workup and evaluation. Patient also had workup for syncope and was positive for orthostatic hypotension with a drop in systolic blood pressure by 50 mmHg from laying down to standing. Patient had troponins trended which were: 0.04, 0.04, 0.03 respectively. EKG showed sinus rhythm with a rate of [address]-T wave changes and chest x-ray was negative for any acute process. Patient does not have any history of cardiovascular disease. We continued her aspirin and statin as she takes at home. Her echocardiogram showed left ventricular ejection fraction of 65% with moderate concentric left ventricular hypertrophy with severe basal septal hypertrophy without left ventricular outflow obstruction. Patient's GI stool panel was negative for infection. She was given a total of 4 L of IV fluids and her nausea was controlled with Zofran. Patient was also started on a daily potassium supplement of 20 meq for hypokalemia. Patient will also tested for diabetes and he will on A1c was 6.6. She will need to be started on an oral hypoglycemic agent. Discharge discussed with: patient, family - Time Spent with Patient Total time spent providing and/or coordinating discharge services: Greater than 30 minutes - Discharge Medications Home Medications: Albuterol Sulfate [Proair Hfa] 2 puff IH QID PRN 08/20/17 [History] Amlodipine Besylate 2.5 mg PO DAILY 08/20/17 [History] Ammonium Lactate [Lac-Hydrin Five] 1 appl TP BID PRN 08/20/17 [History] Aspirin Enteric Coated [Aspirin EC] 81 mg PO DAILY 08/20/17 [History] Beclomethasone Diprop 80mcg [Qvar 80 mcg] 1 puff IH BID 08/20/17 [History] Calcium Carbonate [Calcium] 600 mg PO DAILY 08/20/17 [History] Carbidopa/Levodopa 25/100 [Sinemet 25/100] 2 each PO TID 08/20/17 [History] Cranberry 400 mg PO DAILY 08/20/17 [History] HYDROcodone/Acet 5/325 mg [[place] 5-325 mg] 0.5 - 1 tab PO Q6H PRN 08/20/17 [ History] Loratadine [Claritin] 10 mg PO DAILY 08/20/17 [History] Losartan Potassium [Cozaar] 100 mg PO DAILY 08/20/17 [History] Mometasone Furoate [Nasonex] 17 gm NS DAILY PRN 08/20/17 [History] Montelukast [Singulair] 10 mg PO DAILY 08/20/17 [History] Onabotulinumtoxina [Botox] 100 unit IJ [id number] 08/20/17 [History] Pantoprazole Sodium [Protonix] 20 mg PO DAILY 08/20/17 [History] Polyethylene Glycol 3350 [MiraLAX] 17 gm PO DAILY PRN 08/20/17 [History] Sertraline [Zoloft] 150 mg PO DAILY 08/20/17 [History] Simvastatin [Zocor] 20 mg PO HS 08/20/17 [History] Ubidecarenone [Coenzyme Q-10] 30 mg PO DAILY 08/20/17 [History] clonazePAM [Klonopin] 1 mg PO BID 08/20/17 [History] Allergies/Adverse Reactions: 3 Allergy/AdvReac Type Severity Reaction Status Date / Time caffeine Allergy Rash Verified 12/15/16 11:30 codeine Allergy Rash Verified 12/15/16 11:30 iodine Allergy Rash Verified 12/15/16 11:30 Oxycodone Allergy Nausea Verified 12/15/16 11:30 Tetracycline Allergy Vomiting Verified 12/15/16 11:30 Date of admission: 08/20/17 17:35 Primary care physician: Jose Guadalupe Goff MD Consults: 08/20/17 18:18 Consult to Physician [CONS] Routine Consulting Provider: Shane Xiong Reason for Consult: persistent nausea, vomtting and diarrhea for 3 weeks Time Notified: 18:19 Call Completed: No Discharging clinician: Nilton Guallpa Anticipated date of discharge: 08/22/17 - Constitutional Vitals: Temp Pulse Resp BP Pulse Ox 98.2 F 64 16 165/124 95 08/22/17 07:33 08/22/17 08:53 08/22/17 08:21 08/22/17 07:33 08/22/17 08:53 - Other Additional findings: General: Pleasant without distress HEENT: Moist mucous memory Heart: Regular rate and rhythm with no murmur Lungs: Clear to auscultation bilaterally Abdomen: Soft nontender, nondistended positive bowel sounds Skin: warm and dry Extremities: Absent pedal edema, Neuro: Alert oriented 3 Vascular: Pedal and radial pulses 2 out of 4 - Patient Status Disposition: Transfer Critical Access Hosp Condition: Fair Functional capacity at discharge: independent ambulation Overall status at discharge: patient is not back to baseline - Discharge Instructions Follow Up With: JOSE GUADALUPE GOFF [Other] - 08/29/17 3:00 pm (THIS IS A NEW OFFICE FOR DR. GOFF HE IS NOW LOCATED [facility]IDE OF [facility]) Forms: ED Satisfaction Letter - Diet and Activity Activity: increase activity as tolerated Diet: advance to your usual diet <Tim Guillen - Last Filed: 08/22/17 10:24> Orders not resulted at time of discharge: Pending orders 08/21/17 08:27 Respiratory Infection Panel [MOLMIC] Routine 08/21/17 09:25 Aldosterone, Blood Routine Renin, Activity Routine 08/21/17 12:18 Calprotectin, Fecal Routine Ova & Parasite Exam Routine Pancreatic Elastase, Fecal Routine 08/21/17 13:26 Metanephrine,Ur Random or 24hr Routine 08/21/17 21:29 5-HIAA,Ur [place] or 24hr Routine Date of Encounter: 08/22/17 - Discharge Diagnosis (1) Adrenal incidentaloma Status: Acute (2) Syncope Status: Acute Qualifiers: Syncope type: unspecified Qualified Code(s): R55 - Syncope and collapse (3) Nausea vomiting and diarrhea Status: Acute (4) GERD (gastroesophageal reflux disease) Status: Chronic Qualifiers: Esophagitis presence: without esophagitis Qualified Code(s): K21.9 - Gastro -esophageal reflux disease without esophagitis (5) Hypokalemia Status: Acute (6) Parkinson disease Status: Acute Hospital course: Ms. Crago is a 72 year old female - Time Spent with Patient Total time spent providing and/or coordinating discharge services: Date of admission: 08/20/17 17:35 Primary care physician: Jose Guadalupe Goff MD Consults: 08/20/17 18:18 Consult to Physician [CONS] Routine Consulting Provider: Shane Xiong Reason for Consult: persistent nausea, vomtting and diarrhea for 3 weeks Time Notified: 18:19 Call Completed: No - Constitutional Vitals: Temp Pulse Resp BP Pulse Ox 98.2 F 64 16 165/124 95 08/22/17 07:33 08/22/17 08:53 08/22/17 08:21 08/22/17 07:33 08/22/17 08:53 - Attending Attestation the patient prefers to be transferred to [place] considering there is a possibility of a pheochromocytoma 24 h urine is being collected Time spent on this discharge 40 minutes I examined this patient and my medical decision-making was reviewed with the Resident Physician. I agree with the documented findings, disposition and treatment plan as described except to the extent set forth below.
[2017-08-22 11:43] VITALS: BP 175/99
[2017-08-22] MEDS ORDERED: amLODIPine 5 MG TABLET PO ONE (12:45)
[2017-08-24 15:41] LABS: Urine Collection Duration NOT PROVIDED hr; Urine Collection Volume NOT PROVIDED mL
--- NOTE | 2017-08-26 09:52 | Electrocardiograph Report ---
[address] [place] [address] Test Date: 2017-08-22 Pat Name: Ella Collins Department: 110 Room: 2N10 Gender: F [employer]: PATRICIA : 1945 Requested By: Nilton Guallpa Order Number: [id number] Reading MD: Chintan Hill DO Measurements Intervals [place] Rate: 125 P: 59 DE: 168 QRS: -25 QRSD: 77 T: 31 QT: 317 QTc: 391 Interpretive Statements SINUS TACHYCARDIA LEFT ATRIAL ENLARGEMENT BORDERLINE LEFT AXIS DEVIATION VOLTAGE CRITERIA FOR LVH POSSIBLE ANTERIOR MYOCARDIAL INFARCTION, OF INDETERMINATE AGE Electronically Signed On 08-26-2017 9:50:26 EDT by Chintan Hill DO
== END 2017-08-22 14:50 | disposition short-term general hospital (02) ==
LOC: 2NNU 14:53 → EMEROO 14:53 → 2NNU 18:40
PROVIDERS: ADMIT Internal Medicine; ATTEND Internal Medicine